=== PATIENT | female | born 1980 | race Caucasian/White ===

== ENCOUNTER 2023-03-14 07:52 | Outpatient (CLI) | payer OTHER, SELFPAY | END 2023-03-14 07:53 | disposition home or self-care (01) | PROVIDERS: PCP Family Medicine; Visit Provider Family Medicine | DX: Z00.00 Encounter for general adult medical examination without abnormal findings (principal); R73.01 Impaired fasting glucose; E66.9 Obesity, unspecified; R53.83 Other fatigue; N92.0 Excessive and frequent menstruation with regular cycle; R10.9 Unspecified abdominal pain; Z13.6 Encounter for screening for cardiovascular disorders | CPT/HCPCS: 80053; 80061; 84439; 84443 ==

== ENCOUNTER 2023-04-23 14:45 | Outpatient (CLI) | payer OTHER, SELFPAY ==
--- NOTE | 2023-04-23 15:00 | CRLHL7_ITS ---
For Patients: As a result of the Century Cures Act, medical imaging exams and procedure reports are released immediately into your electronic medical record. You may view this report before your referring provider. If you have questions, please contact your health care provider. INDICATION: Menorrhagia. Perineal pain. TECHNIQUE: Transabdominal and transvaginal pelvic ultrasound. FINDINGS: The uterus measures 8.8 x 5.4 x 5.7 cm. Normal endometrial stripe of 12 mm measured transvaginally. Normal size ovaries without torsion or mass. The right ovary measures 2.4 x 1.9 x 1.9 cm. The left ovary measures 3.8 x 2.4 x 2.6 cm. No free pelvic fluid. IMPRESSION: Normal transabdominal and transvaginal pelvic ultrasound. Dictated by Philip Katz MD @ 04/24/2023 11:40:08 AM (Electronically Signed)
== END 2023-04-23 14:46 | disposition home or self-care (01) ==
LOC: US 14:46
PROVIDERS: PCP Family Medicine; Visit Provider Family Medicine
DX: R10.2 Pelvic and perineal pain (principal); N92.0 Excessive and frequent menstruation with regular cycle
CPT/HCPCS: 76830; 76856

== ENCOUNTER 2023-07-24 11:40 | Outpatient (CLI) | payer OTHER, SELFPAY | END 2023-07-24 11:41 | disposition home or self-care (01) | LOC: NFLDREF 07-27 18:45 | PROVIDERS: PCP Family Medicine; Referring Provider Family Medicine; Visit Provider Family Medicine | DX: E78.5 Hyperlipidemia, unspecified (principal); E03.9 Hypothyroidism, unspecified; R79.89 Other specified abnormal findings of blood chemistry; R73.01 Impaired fasting glucose; F41.9 Anxiety disorder, unspecified; F32.A Depression, unspecified; R10.2 Pelvic and perineal pain; N92.0 Excessive and frequent menstruation with regular cycle; F33.1 Major depressive disorder, recurrent, moderate; F41.1 Generalized anxiety disorder; D72.10 Eosinophilia, unspecified | CPT/HCPCS: 80053; 80061; 84443 ==

== ENCOUNTER 2023-08-28 13:05 | Outpatient (CLI) | payer OTHER, SELFPAY ==
--- NOTE | 2023-08-28 13:20 | MM_ITS ---
INDICATION: BILATERAL SCREENING MAMMOGRAPHY. COMPARISON: NONE. TECHNIQUE: DIGITAL 3D CC/MLO TOMOSYNTHESIS MAMMOGRAMS PERFORMED USING COMPUTER ASSISTED DETECTION. FINDINGS: THERE IS A NODULAR DENSITY WITHIN THE LATERAL LEFT BREAST 3.4 CM FROM THE NIPPLE. RIGHT BREAST PARENCHYMA IS WITHIN NORMAL LIMITS. NO SUSPICIOUS CALCIFICATIONS BILATERALLY. NO ADENOPATHY. IMPRESSION: INDETERMINATE NODULAR DENSITY LEFT BREAST 3:00 3.4 CM FROM THE NIPPLE. RECOMMENDATIONS: 3D CC/MLO SPOT COMPRESSION MAMMOGRAM IMAGES ALONG WITH POSSIBLE LEFT BREAST ULTRASOUND. BI-RADS CATEGORY 0. NEED ADDITIONAL IMAGING.
== END 2023-08-28 13:06 | disposition home or self-care (01) ==
LOC: MAMMO 13:06
PROVIDERS: PCP Family Medicine; Visit Provider Family Medicine
DX: Z12.31 Encounter for screening mammogram for malignant neoplasm of breast (principal); N63.20 Unspecified lump in the left breast, unspecified quadrant
CPT/HCPCS: 77063; 77067

== ENCOUNTER 2023-09-10 07:31 | Outpatient (CLI) | payer OTHER, SELFPAY ==
--- NOTE | 2023-09-10 07:45 | MM_ITS ---
Patient: DU NOONAN Facility:?[facility] Patient ID:?[id number] :?1980 Study:?XRay Breast Left 3D W/CAD-09/10/2023 8:02:35 AM Ordering Physician:Alma Rosa Rod Final Report: DIGITAL DIAGNOSTIC LEFT MAMMOGRAM USING TOMOSYNTHESIS AND COMPUTER-AIDED DETECTION LEFT BREAST ULTRASOUND CLINICAL HISTORY: LEFT breast mass/asymmetry. COMPARISON: 08/28/2023. TECHNIQUE: Digital LEFT mammogram in two projections. Tomosynthesis and CAD utilized. Real-time ultrasound imaging of LEFT breast with imaging documentation. Scanning was performed by both the technologist and the radiologist. BREAST COMPOSITION: There are scattered fibroglandular density. FINDINGS: 3D spot compression CC/MLO left breast mammogram images submitted. Persistent asymmetric density upper outer quadrant left breast. No architectural distortion. No suspicious calcifications. Targeted left breast ultrasound performed. At 2 o`clock 2 cm from the nipple, there is a heterogeneous nodular density corresponding to the mammogram finding measuring 1.6 x 0.7 x 1.5 cm. IMPRESSION: Indeterminate nodular density left breast 2 o`clock 2 cm from the nipple measuring 1.6 x 0.7 x 1.5 cm. RECOMMENDATIONS: Ultrasound-guided core needle biopsy. Results and recommendations discussed with the patient. BI-RADS Category 4: Suspicious A lay language report of this examination will be provided to the patient. Dictated by Reji Alcantar MD @ 09/10/2023 8:48:08 AM jj/Dictated by: Reji Alcantar MD @ 09/10/2023 8:48:00 AM (Electronic Signature)
--- NOTE | 2023-09-10 08:15 | US_ITS ---
Patient: DU NOONAN Facility:?[facility] Patient ID:?[id number] Site Patient ID:?[id number]. Site :?1980 Study:?US-Breast Left DR BOLANOS TO READ-09/10/2023 8:10:49 AM Ordering Physician:?FCO MONTOYA Final Report: PLEASE SEE DIGITAL DIAGNOSTIC LEFT MAMMOGRAM PERFORMED SAME DAY CRL:[email or web address] dunlap/Dictated by: Reji Bolanos MD @ 09/10/2023 8:48:00 AM Signed by:?Reji Bolanos MD @09/10/2023 11:14:58 AM (Electronic Signature)
== END 2023-09-10 07:32 | disposition home or self-care (01) ==
LOC: MAMMO 07:32
PROVIDERS: PCP Family Medicine; Visit Provider Family Medicine
DX: N63.20 Unspecified lump in the left breast, unspecified quadrant (principal); R92.8 Other abnormal and inconclusive findings on diagnostic imaging of breast
CPT/HCPCS: 76642; 77065; G0279

== ENCOUNTER 2023-09-21 09:37 | Outpatient (CLI) | payer OTHER, SELFPAY ==
--- NOTE | 2023-09-21 10:15 | US_ITS ---
Patient: DU NOONAN Facility:?[facility] Patient ID:?[id number] Site Patient ID:?[id number]. Site :?1980 Study:?US-Breast Procedure DR BOLANOS TO READ-09/21/2023 10:30:50 AM Ordering Physician:?FCO MONTOYA Final Report: ULTRASOUND-GUIDED BREAST BIOPSY AND POST-BIOPSY DIGITAL MAMMOGRAM FOR BIOPSY MARKER PLACEMENT 09/21/2023 CLINICAL HISTORY: Indeterminate nodule LEFT breast. COMPARISON STUDIES: 09/10/2023. TECHNIQUE: Real-time ultrasound with image documentation was used for targeting the breast lesion. Core biopsy specimens were obtained using an automated gun with a 18- gauge biopsy needle. Post-biopsy CC and ML digital mammograms were obtained to document position of the biopsy marker. CONSENT and TIME OUT: The procedure, risks, and alternatives were explained to the patient and a consent was signed. [place] Protocol was followed including pre-procedure verification that relevant information/documentation was available, reviewed and properly matched to the patient; consent accurate and complete; and equipment and supplies available. Time Out was conducted just prior to starting procedure to verify the four required elements: patient identity, correct side/site marked (if applicable), procedure, relevant images/results properly labeled and displayed (if applicable). PROCEDURE: The patient was positioned supine on the ultrasound table. The breast was prepped with ChloraPrep. 8 cc of 1 percent lidocaine used for local anesthesia. Core samples were obtained. A sterile metal biopsy clip was placed percutaneously to jm the lesion position within the breast. The specimens were placed in 10% formalin and sent to the pathology department. Pressure was held on the biopsy site until all bleeding subsided. The skin incision was closed with Steri-Strips. An ice pack was positioned over the biopsy site. Post-biopsy instructions were reviewed with the patient, and a written copy was given to her. LATERALITY: Left breast. LESION: Heterogeneous solid circumscribed ovoid nodule measuring 16 x 7 x 15 millimeters at 2 o`clock 2 cm from the nipple. SUSPICION FOR MALIGNANCY: Low. NUMBER OF SAMPLES: 5. BIOPSY CLIP SHAPE: Oval. PROXIMITY OF CLIP TO TARGET: Within the lesion. IMPRESSION: Ultrasound-guided breast biopsy. When the pathology report is available, an addendum to this report will be made. ACR not applicable Dictated by Reji Bolanos MD @ 09/21/2023 10:52:04 AM Umm DW/Dictated by: Reji Bolanos MD @ 09/21/2023 10:52:00 AM Signed by:?Reji Bolanos MD @09/21/2023 2:34:27 PM --ADDENDUM-- Addendum: Pathology consistent with benign non proliferative fibrocystic changes and PASH. No evidence of atypia or malignancy. This is concordant and benign. Routine annual BILATERAL screening mammography recommended. Dictated by: Reji Bolanos MD @09/25/2023 9:49:41 AM Umm Signed by:?Reji Bolanos MD @09/25/2023 1:46:01 PM (Electronic Signature)
--- NOTE | 2023-09-21 11:00 | MM_ITS ---
Patient: DU NOONAN Facility:?[facility] Patient ID:?[id number] Site Patient ID:?[id number] Site :?1980 Study:?XRay-Breast Left 2D post clip placement-09/21/2023 10:50:04 AM Ordering Physician:Marcel Final Report: PLEASE SEE LEFT BREAST ULTRASOUND-GUIDED BIOPSY OF SAME DAY. CRL:shaka KLEBER/Dictated by: Reji Alcantar MD @ 09/21/2023 10:52:00 AM Signed by:?Reji Alcantar MD @09/21/2023 6:03:01 PM (Electronic Signature)
== END 2023-09-21 09:38 | disposition home or self-care (01) ==
LOC: US 09:38
PROVIDERS: PCP Family Medicine; Visit Provider Family Medicine
DX: N63.20 Unspecified lump in the left breast, unspecified quadrant (principal); R92.8 Other abnormal and inconclusive findings on diagnostic imaging of breast
CPT/HCPCS: 19083; 77065; 88305; A4648; A4649

== ENCOUNTER 2024-03-26 10:34 | Outpatient (CLI) | payer OTHER, SELFPAY | END 2024-03-26 10:35 | disposition home or self-care (01) | LOC: NFLDREF 03-27 08:43 | PROVIDERS: PCP Family Medicine; Referring Provider Family Medicine; Visit Provider Family Medicine | DX: R79.89 Other specified abnormal findings of blood chemistry; E78.5 Hyperlipidemia, unspecified; R73.01 Impaired fasting glucose; D72.10 Eosinophilia, unspecified | CPT/HCPCS: 80053; 80061; 84439; 84443 ==

== ENCOUNTER 2024-06-09 09:48 | Outpatient (CLI) | payer OTHER, SELFPAY | END 2024-06-09 09:49 | disposition home or self-care (01) | LOC: NFLDREF 06-11 08:19 | PROVIDERS: PCP Family Medicine; Referring Provider Family Medicine; Visit Provider Family Medicine | DX: R79.89 Other specified abnormal findings of blood chemistry (principal) | CPT/HCPCS: 84439; 84443 ==

== ENCOUNTER 2024-09-08 09:52 | Outpatient (CLI) | payer OTHER, SELFPAY | END 2024-09-08 09:53 | disposition home or self-care (01) | LOC: NFLDREF 09-09 21:46 | PROVIDERS: PCP Family Medicine; Referring Provider Family Medicine; Visit Provider Family Medicine | DX: R79.89 Other specified abnormal findings of blood chemistry (principal); E78.5 Hyperlipidemia, unspecified | CPT/HCPCS: 80053; 80061; 84439; 84443 ==

== ENCOUNTER 2024-09-22 10:20 | Outpatient (CLI) | payer SELFPAY ==
--- NOTE | 2024-09-22 10:45 | CRLHL7_ITS ---
For Patients: As a result of the Century Cures Act, medical imaging exams and procedure reports are released immediately into your electronic medical record. You may view this report before your referring provider. If you have questions, please contact your health care provider. CLINICAL HISTORY: Pelvic and perineal pain TECHNIQUE: 2D montez scale ultrasound. In addition color Doppler and spectral Doppler analysis was performed of the pelvis using a transabdominal and transvaginal approach. COMPARISON 04/23/2023 FINDINGS: The uterus measures 8.8 x 5.3 x 6.3 cm. No uterine fibroid. Endometrium is heterogeneous and measures approximately 7 millimeters. IUD is present in good position within the endometrial canal. The right ovary measures 3.4 x 1.7 x 1.9 cm in size and the left ovary measures 3.5 x 2.0 x 2.6 cm. The ovaries demonstrate normal arterial and venous blood flow on color Doppler and spectral Doppler analysis. There are no suspicious fluid collections within the cul-de-sac. Simple cyst right ovary measures 1.5 cm. IMPRESSION: Simple right ovarian cyst measures 1.5 cm. Normal position of an IUD within the endometrial canal. Dictated by Reji Alcantar MD @ 09/22/2024 12:33:44 PM (Electronically Signed)
== END 2024-09-22 10:21 | disposition home or self-care (01) ==
LOC: US 10:22
PROVIDERS: PCP Family Medicine; Visit Provider Obstetrics & Gynecology
DX: R10.2 Pelvic and perineal pain (principal); N83.291 Other ovarian cyst, right side
CPT/HCPCS: 76830; 76856; 93976

== ENCOUNTER 2024-12-08 07:40 | Outpatient (CLI) | payer SELFPAY | END 2024-12-08 07:41 | disposition home or self-care (01) | PROVIDERS: PCP Family Medicine; Referring Provider Family Medicine; Visit Provider Family Medicine | DX: E03.9 Hypothyroidism, unspecified (principal); E78.5 Hyperlipidemia, unspecified | CPT/HCPCS: 80061; 84439; 84443 ==

== ENCOUNTER 2025-03-30 08:30 | Outpatient (CLI) | payer SELFPAY | END 2025-03-30 08:31 | disposition home or self-care (01) | LOC: NFLDREF 04-12 06:11 | PROVIDERS: PCP Family Medicine; Referring Provider Family Medicine; Visit Provider Family Medicine | DX: E03.9 Hypothyroidism, unspecified (principal); R79.89 Other specified abnormal findings of blood chemistry; E78.5 Hyperlipidemia, unspecified | CPT/HCPCS: 80053; 80061; 84439; 84443 ==